=== PATIENT | male | born 1960 | race Two or more races ===

== ENCOUNTER → 2025-07-05 | Outpatient (CLI) | payer MEDICAID, SELFPAY ==
--- NOTE | 2025-07-05 10:50 | XR_ITS ---
Examination: Abdomen sonogram, Limited Date and time of exam: July 05, 2025, 1111 hours INDICATIONS: Severe right lower abdominal pain with lump in the anterior abdomen 1 week Technique: Real-time parada scale transabdominal sonographic images of the upper abdomen obtained. Findings: Right lower abdomen hypoechoic structure 3.5 x 1.4 x 3.0 cm, most consistent with hernia IMPRESSION: Consider CT scan abdomen pelvis post intravenous contrast follow-up to confirm hernia in the right lower abdomen
== END | disposition home or self-care (01) ==
DX: K40.90 Unilateral inguinal hernia, without obstruction or gangrene, not specified as recurrent (principal)
CPT/HCPCS: 76705